=== PATIENT | male | born 1935 | race Caucasian/White ===

== ENCOUNTER 2019-08-30 22:54 | Emergency (ER) | payer MEDICARE ==
[~2019-08-30] VITALS: Ht 193 cm; Wt 104.3 kg
[2019-08-30] MEDS ORDERED: LIPITOR10 MG (23:07)
--- NOTE | 2019-08-31 06:42 | EKG ---
[facility] [address] [facility] [place] [address] Signed Atrial-paced rhythm with prolonged AV conduction Incomplete right bundle branch block Septal infarct , age undetermined Abnormal ECG No previous ECGs available Confirmed by EDI HANSON MD ([id number]) on 08/31/2019 6:42:11 AM Electronically Signed By: EDI HANSON MD 08/31/19 [id number] PATIENT NAME: GUS ROJAS Electrocardiogram DATE OF : 37 PHYSICIAN: EDI HANSON MD REPORT #: [id number] REPORT IS CONFIDENTIAL AND NOT TO BE RELEASED WITHOUT AUTHORIZATION
== END 2019-08-31 02:35 | disposition home or self-care (01) ==
LOC: ED 22:54
DX: R07.89 Other chest pain (principal); Z88.1 Allergy status to other antibiotic agents; Z79.899 Other long term (current) drug therapy
CPT/HCPCS: 71045; 80053; 83735; 84484; 85025; 85379; 93005; 93010; 99285-25